=== PATIENT | male | born 1950 | race Caucasian/White ===

== ENCOUNTER 2019-01-04 11:44 | Day surgery (SDC) | payer OTHER | END 2019-01-04 15:11 | disposition home or self-care (01) | LOC: GIL 11:44 | DX: Z12.11 Encounter for screening for malignant neoplasm of colon (principal); K64.8 Other hemorrhoids; I10 Essential (primary) hypertension; E78.5 Hyperlipidemia, unspecified | CPT/HCPCS: 45378 ==